=== PATIENT | female | born 1965 | race African-American/Black ===

== ENCOUNTER 2016-05-26 00:58 | Emergency (ER) | payer BC ==
[2016-05-26] MEDS ORDERED: SODIUM CHLORIDE 0.9% 1,000 ML ONE (03:49)
[2016-05-26] MEDS ORDERED: DILAUDID 1 MG/ML AMP ONE (03:49)
[2016-05-26] MEDS ORDERED: ONDANSETRON 4 MG VIAL ONE (03:49)
== END 2016-05-26 05:09 | disposition home or self-care (01) ==
LOC: ER 00:58
DX: M79.1 Myalgia (principal)
CPT/HCPCS: 36415; 74176; 80053; 81001; 83690; 85025; 96361; 96374; 96375